=== PATIENT | female | born 1975 | race Caucasian/White ===

== ENCOUNTER 2018-12-28 09:24 | Inpatient (IN) | payer OTHER ==
[~2018-12-28] VITALS: Ht 152.4 cm; Wt 126.0 kg
--- OUTSIDE RECORDS SUMMARY | ~2018-12-28 | XMS | Clinical Summary ---
Demographics + + + | Address | [address] | | | [place] [address] | + + + | Home Phone | | + + + | Preferred Language | Unknown | + + + | Marital Status | Single | + + + | Judaism Affiliation | Unknown | + + + | Race | Unknown | + + + | Ethnic Group | Unknown | + + + Author + + + | Author | [facility] (Historical as of | | | 10-22-18) | + + + | Organization | [facility] (Historical as of | | | 10-22-18) | + + + | Address | Unknown | + + + | Phone | Unavailable | + + + Support + + + + + | Name | Relationship | Address | Phone | + + + + + | Amita De La Torre | ECON | [address] | | | | | [address] [place] | | | | | [phone] | | + + + + + Care Team Providers + +------+ + | Care Fruit Farmworker Name | Role | Phone | + +------+ + | Dr. Jo | PP | Unavailable | + +------+ + Allergies Not on File Current Medications Not on file Active Problems Not on file Social History + +-------+ +--------+------+ | Tobacco Use | Types | Packs/Day | Years | Date | | | | | Used | | + +-------+ +--------+------+ | Never Assessed | | | | | + +-------+ +--------+------+ + + + | Sex Assigned at | Date Recorded | | | | + + + | Not on file | | + + + Plan of Treatment Not on file Results Not on filefrom Last 3 Months Insurance + +--------+ +------+-------+ + | Payer | Benefi | Subscriber | Type | Phone | Address | | | t Plan | ID | | | | | | / | | | | | | | Group | | | | | + +--------+ +------+-------+ + | MEDICAID | [employer] | [id number] | | | [address] | | | [place] | | | | [place] | | | [place] | | | | [phone] | | | IT APPLICATION SUPPORT ANALYST | | | | | + +--------+ +------+-------+ + + +--------+ +--------+ + + | Guarantor Name | Accoun | Relation to | Date | Phone | Billing Address | | | t Type | Patient | of | | | | | | | | | | + +--------+ +--------+ + + | JANNETH DE LA TORRE | Person | Self | [birth year] | Work: | [address] | | | [place] | | 1976 | [phone] | [address] [place], | | | [place] | | | [address]: | [place] [address] | | | | | | | | | | | | | [phone] | | | | | | | [phone] | | + +--------+ +--------+ + +"
--- OUTSIDE RECORDS SUMMARY | ~2018-12-28 | XMS | Clinical Summary ---
Demographics + + + | Address | [address] | | | [place] [address] | + + + | Home Phone | | + + + | Preferred Language | Unknown | + + + | Marital Status | Single | + + + | Zoroastrian Affiliation | Unknown | + + + | Race | Unknown | + + + | Ethnic Group | Unknown | + + + Author + + + | Author | [facility] (Historical as of | | | 10-22-18) | + + + | Organization | [facility] (Historical as of | | | 10-22-18) [...] [place] | | | | | [address] | | + + + + + Care Team Providers + +------+ + | Care Diagnostic Radiologist Name | Role | Phone | + [...] +------+-------+ + | MEDICAID | [employer] | [id number] | | | [address] | | | N | | | | [place] | | | [place] | | | | [phone] | | | 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
--- OUTSIDE RECORDS SUMMARY | ~2018-12-28 | XMS | Clinical Summary ---
Demographics + + + | Address | [address] | | | [place] [address] | + + + | Home Phone | | + + + | Preferred Language | Unknown | + + + | Marital Status | Single | + + + | Alevism Affiliation | Unknown | + + + | Race | Unknown | + + + | Ethnic Group | Unknown | + + + Author + + + | Author | [facility] (Historical as of | | | 10-22-18) | + + + | Organization | [facility] (Historical as of | | | 10-22-18) [...] [place] | | | | | [address] | | + + + + + Care Team Providers + +------+ + | Care Director [employer] Name | Role | Phone | + [...] +------+-------+ + | MEDICAID | [employer] | [id number] | | | [address] | | | [place] | | | | [place] | | | [place] | | | | [phone] | | | 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
[~2018-12-28 09:24] MED LIST: ACETAMINOPHEN-1 EAC1 PO; ANAPROX275 MG PO; GLUCOPHAGE1000 MG PO; IBUPROFEN600 MG PO; LISINOPRIL-HCT1 EACH PO; METOPROLOL SUCC25 MG PO; NAPROSYN500 MG PO; NORCO 5-325 TA1 EACH PO; PENICILLIN V P500 MG PO; PERCOCET 5-3251 EACH PO; ULTRAM50 MG PO
--- OUTSIDE RECORDS SUMMARY | 2018-12-28 09:26 | XMS ---
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 - Has Care Guidelines CARE PROVIDERS YESSICA COLLIER Physician Banking Services Clerk 01/31/2018-Current PHONE: [phone] Naida has no Care Guidelines for this patient. Care History Medical/Surgical 01/31/2018 [facility] SET UP A PCP APT FOR PATIENT WITH SILVINO COLLIER AT [facility]. - APT IS ON 02/09/18 @ 1:00PM. - PATIENT HAS AN APT WITH DENTIST OFFICE ON 02/08/18. E.D. VISIT COUNT (12 MO.) 2 [facility] TOTAL 2 NOTE: Visits indicate total known visits. ED/UCC VISIT TRACKING (12 MO.) 12/28/2018 09:25 [facility] TYPE: Emergency COMPLAINT: - CHEST PAIN 01/29/2018 16:10 [facility] TYPE: Emergency COMPLAINT: - TOOTH PAIN DIAGNOSES: - Essential (primary) hypertension - Radiographic dye allergy status - 1 Type 2 diabetes mellitus without complications - Other specified disorders of teeth and supporting structures - Dental caries, unspecified - Allergy status to sulfonamides status - Nicotine dependence, unspecified, uncomplicated - Allergy status to narcotic agent status INPATIENT VISIT TRACKING (12 MO.) No inpatient visits to display in this time frame [email or web address]
[2018-12-28] MEDS ORDERED: METFORMIN HCL500 MG PO (09:39)
[2018-12-28] MEDS ORDERED: ACETAMINOPHEN500 MG PO (09:39)
[2018-12-28] MEDS ORDERED: LISINOPRIL-HCT1 EACH PO (09:40)
[2018-12-28] MEDS ORDERED: MELOXICAM15 MG PO (16:07)
--- NOTE | 2018-12-28 18:13 | EKG ---
[facility] [address] [place] [address] Signed Sinus tachycardia Nonspecific ST and T wave abnormality Abnormal ECG When compared with ECG of 25-FEB-2016 13:27, Vent. rate has increased BY 45 BPM Nonspecific T wave abnormality, worse in Inferior leads Nonspecific T wave abnormality now evident in Anterolateral leads Confirmed by JHONATHAN BIRD MD ([id number]) on 12/28/2018 6:13:23 PM Electronically Signed By: JHONATHAN BIRD MD 12/28/18 1813 PATIENT NAME: RAYMOND LAMB Electrocardiogram DATE OF : 73 PHYSICIAN: JHONATHAN BIRD MD REPORT #: [id number] REPORT IS CONFIDENTIAL AND NOT TO BE RELEASED WITHOUT AUTHORIZATION
[2019-01-01] MEDS ORDERED: ADVAIR 250-501 EACH INH (09:57)
[2019-01-01] MEDS ORDERED: VENTOLIN HFA18 GM INH (09:58)
[2019-01-01] MEDS ORDERED: PREDNISONE20 MG PO (10:07)
[2019-01-01] MEDS ORDERED: CEFUROXIME250 MG PO (10:08)
== END 2019-01-01 14:10 | disposition home or self-care (01) | DRG 871 ==
LOC: ED 09:24 → CCU 11:44 → MS 11:44
PROVIDERS: ADMIT Student in an Organized Health Care Education/Training Program
DX: A40.3 Sepsis due to Streptococcus pneumoniae (principal); J18.9 Pneumonia, unspecified organism; R65.20 Severe sepsis without septic shock; J96.01 Acute respiratory failure with hypoxia; J44.1 Chronic obstructive pulmonary disease with (acute) exacerbation; J44.0 Chronic obstructive pulmonary disease with (acute) lower respiratory infection; Z68.43 Body mass index [BMI] 50.0-59.9, adult; F17.210 Nicotine dependence, cigarettes, uncomplicated; E66.01 Morbid (severe) obesity due to excess calories; I10 Essential (primary) hypertension; E11.9 Type 2 diabetes mellitus without complications; R07.89 Other chest pain; F41.9 Anxiety disorder, unspecified; F32.9 Major depressive disorder, single episode, unspecified; M54.9 Dorsalgia, unspecified; G89.29 Other chronic pain; Z88.5 Allergy status to narcotic agent; Z88.2 Allergy status to sulfonamides; Z91.041 Radiographic dye allergy status; Z79.84 Long term (current) use of oral hypoglycemic drugs; Z79.899 Other long term (current) drug therapy
CPT/HCPCS: 36415; 36600; 71045; 80048; 80053; 81001; 82803; 83605; 83735; 83880; 84484; 85025; 85379; 87070; 87088; 87205; 93005; 93010; 94640; 94660; 94667; 94668; 96374; 97110; 97116; 97162; 97165; 97530; 97535; 99285-25; J0456; J0696; J1650; J1815; J2920; J2930; J3480; J7060; J7120; J7512

== ENCOUNTER 2020-09-23 22:30 | Emergency (ER) | payer OTHER ==
[~2020-09-23] VITALS: Ht 152.4 cm; Wt 127.0 kg
[~2020-09-23 22:30] MED LIST changes: +ACETAMINOPHEN500 MG PO; +ADVAIR 250-501 EACH INH; +CEFUROXIME250 MG PO; +MELOXICAM15 MG PO; +METFORMIN HCL500 MG PO; +PREDNISONE20 MG PO; +VENTOLIN HFA18 GM INH
[2020-09-24] MEDS ORDERED: AUGMENTIN 875-1 EACH PO (01:41)
[2020-09-24] MEDS ORDERED: HYDROCODON-ACE1 EA10 PO (01:41)
--- NOTE | 2020-09-25 15:58 | EKG ---
[facility] [address] [facility] [place] [address] Signed Normal sinus rhythm Normal ECG When compared with ECG of 28-DEC-2018 09:30, Questionable change in QRS axis Nonspecific T wave abnormality, improved in Inferior leads Nonspecific T wave abnormality, improved in Anterolateral leads Confirmed by CHRIS YODER MD ([id number]) on 09/25/2020 3:58:24 PM Electronically Signed By: CHRIS YODER MD 09/25/20 1558 PATIENT NAME: ZAINABGERARDO Electrocardiogram DATE OF : 73 PHYSICIAN: CHRIS YODER MD REPORT #: [id number] REPORT IS CONFIDENTIAL AND NOT TO BE RELEASED WITHOUT AUTHORIZATION
== END 2020-09-24 01:55 | disposition home or self-care (01) ==
LOC: ED 22:30
DX: J18.9 Pneumonia, unspecified organism (principal); R07.89 Other chest pain; E66.9 Obesity, unspecified; I10 Essential (primary) hypertension; E11.9 Type 2 diabetes mellitus without complications; F17.200 Nicotine dependence, unspecified, uncomplicated; Z88.5 Allergy status to narcotic agent; Z88.2 Allergy status to sulfonamides; Z91.041 Radiographic dye allergy status; Z79.899 Other long term (current) drug therapy; Z79.84 Long term (current) use of oral hypoglycemic drugs; Z20.822 Contact with and (suspected) exposure to COVID-19
CPT/HCPCS: 71045; 71250; 80053; 81001; 83735; 84484; 85025; 93005; 93010; 96374; 99285-25; C9803; J1885; U0003

== ENCOUNTER 2024-01-02 05:18 | Emergency (ER) | payer OTHER ==
[~2024-01-02] VITALS: Ht 152.4 cm; Wt 112.6 kg
[~2024-01-02 05:18] MED LIST changes: +AMOX TR-K CLV1 EAC1 PO; +AUGMENTIN 875-1 EACH PO; +HYDROCODON-ACE1 EA10 PO; +ZITHROMAX250 MG PO
[2024-01-02 06:08] LABS: BASOPHILS 0.8 % (0-2); EOSINOPHILS 1.1 % (0-6); HEMATOCRIT 46.2 % (35.0-50.0); HEMOGLOBIN 16.2 g/dL (12.0-18.0); LYMPHOCYTES 21.6 % (24-44); MCH 33.5 (27-36); MCV 95.8 fl (81-99); MONOCYTES 5.5 % (0-12); PLATELET COUNT 333 K/uL (140-440); RBC 4.82 M/ul (4.3-5.7); RDW 13.9 (10.5-15.0)
[2024-01-02 06:27] LABS: ALBUMIN 3.2 g/dL (3.4-5.0); ALBUMIN/GLOBULIN RATIO 0.78 (1.1-2.4); ANION GAP 15.9 (7-21); BILIRUBIN, TOTAL 0.5 ng/dL (0.2-1.0); BUN/CREATININE RATIO 6.57 (6.0-28.6); CREATININE, SERUM 0.76 mg/dL (0.55-1.02); POTASSIUM 2.9 mmol/L (3.5-5.1); PROTEIN, TOTAL 7.3 g/dL (6.4-8.2)
[2024-01-02] MEDS ORDERED: KETOROLAC TROMETHAMINE 30 MG/ML VIAL IV ONE (06:30)
[2024-01-02] MEDS ORDERED: METHYLPREDNISOLO4 M1 PO ×2 (06:37→07:13)
[2024-01-02] MEDS ORDERED: METOPROLOL TARTRATE 50 MG TAB PO ONE (06:45)
[2024-01-02 06:51] LABS: BILIRUBIN, URINE NEGATIVE (negative); BLOOD/HGB, URINE NEGATIVE (Negative); KETONE, URINE NEGATIVE (Negative); LEUK ESTERASE, URINE NEGATIVE (negative); NITRITE, URINE POSITIVE (negative)
[2024-01-02] MEDS ORDERED: POTASSIUM CHLORIDE 10 MEQ TABCR PO ONE (07:00)
[2024-01-02 07:03] LABS: AMPHETAMINES, URINE NEGATIVE (NEGATIVE); BARBITURATES, URINE NEGATIVE (NEGATIVE); BENZODIAZEPINE, URINE NEGATIVE (NEGATIVE); BUPRENORPHINE, URINE NEGATIVE (NEGATIVE); CANNABINOID, URINE NEGATIVE (NEGATIVE); COCAINE, URINE NEGATIVE (NEGATIVE); ECSTASY, URINE NEGATIVE (NEGATIVE); FENTANYL, URINE NEGATIVE (NEGATIVE); METHADONE, URINE NEGATIVE (NEGATIVE); OPIATES, URINE NEGATIVE (NEGATIVE); OXYCODONE, URINE NEGATIVE (NEGATIVE); PHENCYCLIDINE, URINE NEGATIVE (NEGATIVE)
[2024-01-02 07:04] LABS: EPITHELIAL CELLS, URINE SQUAMOUS 1+ /lpf (0-1+)
[2024-01-02 07:05] LABS: BACTERIA, URINE 3+ /hpf (negative); COLLECTION TYPE, URINE CLEAN CATCH; CRYSTALS, URINE NONE SEEN (0-1+); REFLEX CULTURE, URINE Yes (No)
[2024-01-02] MEDS ORDERED: ZESTRIL20 MG PO ×2 (07:08→07:13)
[2024-01-02] MEDS ORDERED: K-TAB ER20 MEQ PO (07:17)
[2024-01-02 07:28] VITALS: BP 154/93
--- NOTE | 2024-01-02 20:51 | EKG ---
[facility] [address] [facility] [place] [address] Signed Normal sinus rhythm Normal ECG When compared with ECG of 28-AUG-2021 22:58, No significant change was found Confirmed by Parveen Burnett MD ([id number]) on 01/02/2024 8:51:25 PM Electronically Signed By: PARVEEN BURNETT DO 01/02/242050 PATIENT NAME: RAYMOND LAMBGERARDO Electrocardiogram DATE OF : 73 PHYSICIAN: PARVEEN BURNETT DO REPORT #: [id number] REPORT IS CONFIDENTIAL AND NOT TO BE RELEASED WITHOUT AUTHORIZATION
== END 2024-01-02 07:28 | disposition home or self-care (01) ==
LOC: ED 05:18
PROVIDERS: Internal Medicine
DX: M75.52 Bursitis of left shoulder (principal); M75.51 Bursitis of right shoulder; E11.9 Type 2 diabetes mellitus without complications; I10 Essential (primary) hypertension; M41.9 Scoliosis, unspecified; E66.01 Morbid (severe) obesity due to excess calories; F17.200 Nicotine dependence, unspecified, uncomplicated; Z91.041 Radiographic dye allergy status; Z88.2 Allergy status to sulfonamides; Z88.6 Allergy status to analgesic agent; Z88.5 Allergy status to narcotic agent; Z88.0 Allergy status to penicillin
CPT/HCPCS: 36415; 71045; 80053; 80307; 81001; 83036; 83735; 83880; 84484; 85025; 85379; 87077; 87088; 87186; 93005; 93010; 96374; 99284-25; A9270; J1885